=== PATIENT | female | born 1940 | race Caucasian/White ===

== ENCOUNTER 2016-04-20 17:28 | Inpatient (IN) | payer OTHER ==
[~2016-04-20] VITALS: Ht 162.6 cm; Wt 77.1 kg
--- NOTE | ~2016-04-20 | HC ---
[facility] [place] [address] CONSULTATION Name: CELINE WOODS Room #: 427-P ADM IN M.R.#: [id number] Admission: 04/20/16 Attend Phys: Newton Franklin DO Discharge: Date of : 42 Report #: [id number] THIS REPORT FOR: //name// CC: Anuj Franklin [facility] DATE OF SERVICE: 04/20/2016 HISTORY OF PRESENT ILLNESS: I have been asked to evaluate this 75-year-old lady who had laparoscopic cholecystectomy approximately 10 days ago at [facility] and did well in the immediate postoperative period. She continued to improve until approximately last , when she began to develop right upper quadrant pain. This was not associated with nausea or vomiting. She denies febrile illness. She sought attention at [facility] on the day of admission, but did not have satisfactory triage in the emergency department. She subsequently presented to the [facility] emergency department for evaluation and was found by CT scan to have a large subhepatic and perihepatic fluid collection with significant right upper quadrant pain. She has been admitted to the medicine service for evaluation, IV antibiotics and consideration of interventional radiology consultation for drainage of the perihepatic fluid collection to evaluate for possible abscess formation. PAST MEDICAL HISTORY: Consistent with hypothyroidism and recent laparoscopic cholecystectomy at [facility] on 04/09/2016. CURRENT MEDICATIONS: Levothyroxine 0.025 mg daily and Pepcid 20 mg at bedtime. ALLERGIES: MORPHINE. SOCIAL HISTORY: Occasional alcohol ingestion. Does not smoke cigarettes and does not use illicit drugs. REVIEW OF SYSTEMS: Her 10-point review of systems is essentially noncontributory and she denies fever or chills, but has significant right upper quadrant pain with some right pleuritic discomfort. PHYSICAL EXAMINATION: GENERAL: Demonstrates a patient who is alert, cooperative and resting comfortably in bed. IV is infusing. She is alert and cooperative. HEENT: Pupils equal, round and react to light. Extraocular movements within normal limits. NECK: Supple. No adenopathy. LUNGS: Clear with decreased breath sounds at the right base. CARDIOVASCULAR: Regular rate and rhythm. [facility] [address] [place] [address] CONSULTATION Name: CELINE WOODS Room #: 427-P ADM IN M.R.#: [id number] Admission: 04/20/16 Attend Phys: Newton Franklin DO Discharge: Date of : 42 Report #: [id number] ABDOMEN: Marked tenderness in the right upper quadrant. No palpable masses present. Left lower quadrant and left upper quadrant are unremarkable and nontender. No guarding or rebound. Suggestion of guarding in the right upper quadrant. Right lower quadrant is unremarkable. LABORATORY DATA: Review of laboratory demonstrates white blood cell count high normal at approximately 12,000. CT scan demonstrates the subhepatic and perihepatic fluid collection, consistent with possible hematoma or abscess. I would recommend IV fluids. Interventional radiology consultation for drainage procedure as well as a hepatobiliary scan. If the fluid collection drainage is consistent with possible abscess, then infectious disease will need to be consulted for further antibiotic therapy and management. Thank you for allowing us to participate in her care. <ELECTRONICALLY SIGNED> By: Miguel A Garcia MD, FACS 04/23/16 1629 [id number] Miguel A Garcia MD, FACS /nt
--- NOTE | ~2016-04-20 | HC ---
[facility] [place] [address] CONSULTATION Name: CELINE WOODS Room #: 427-P [facility] IN M.R.#: [id number] Admission: 04/20/16 Attend Phys: Newton Franklin DO Discharge: Date of : 42 Report #: [id number] THIS REPORT FOR: //name// CC: Anuj Franklin [facility] Infectious Disease Consultation REASON FOR CONSULTATION: I was asked to evaluate concerning suspected postoperative surgical site infection after laparoscopic cholecystectomy. HISTORY OF PRESENT ILLNESS: The patient is a 75-year-old who underwent a laparoscopic cholecystectomy on 04/09/2016 by ____ [facility]. No intraoperative complications were noted. She was dismissed and at home was doing reasonably well until 5 days ago had the acute onset of right upper quadrant pain. This persisted, associated with mild sweats, which she thought was low grade fever, although she never took it. Did have some pleuritic chest pain and pain up into her right shoulder, presented to the Emergency Room for further evaluation. CT scan showed fairly large subdiaphragmatic fluid collection with associated air. Also had some fluid in the right chest with atelectasis and infiltrate. Along with this, she developed shortness of breath. She would have spasms of pain, not relieved with ibuprofen. ALLERGIES: MORPHINE. MEDICATIONS: Levothyroxine and Pepcid, now on vancomycin and meropenem. PAST MEDICAL HISTORY: Cholecystectomy, hypothyroidism, abdominoplasty, liposuction. FAMILY HISTORY: Noncontributory. SOCIAL HISTORY: Nonsmoker, no significant alcohol intake. REVIEW OF SYSTEMS: No cough or sputum production. No vomiting or diarrhea. No dysuria or frequency. PHYSICAL EXAMINATION: VITAL SIGNS: Afebrile. GENERAL: Hemodynamically stable, alert, cooperative. Right upper quadrant has drainage in place with thin bloody fluid in the bulb. HEENT: Unremarkable. LUNGS: Crackles in both bases, right greater than left. HEART: Regular, without murmur. [facility] [address] [place] [address] CONSULTATION Name: CELINE WOODS Room #: [address] [place] [address] IN M.R.#: [id number] Admission: 04/20/16 Attend Phys: Newton Franklin DO Discharge: Date of : 42 Report #: [id number] ABDOMEN: Soft, tender in the right upper quadrant, incisions from laparoscopic cholecystectomy unremarkable. No CVA tenderness. EXTREMITIES: Unremarkable. LABORATORY STUDIES: Hepatobiliary scan negative for biliary leak. Blood culture is negative to date. Sodium 136, potassium 3.4, bicarbonate 24, creatinine 0.8, bilirubin 1.2, alk phos 105, ____. Hemoglobin 9.2, white count 9.9, platelet count 372,000. IMPRESSION: A 75-year-old, postoperative day #12 from laparoscopic cholecystectomy with subdiaphragmatic fluid collection consistent with hematoma. Still concerned about underlying infection with associated air in the region. We will need to await Gram stain and cultures to further define this process. PLAN: Recommend continuing broad antibiotic coverage pending culture results. Remove drain when fluid collection has resolved. We will follow. <ELECTRONICALLY SIGNED> By: Anuj Rollins MD 04/22/16 0936 [id number] [id number] Anuj Rollins MD /nt
--- NOTE | ~2016-04-20 | EKG ---
[address] [place] [address] ELECTROCARDIOGRAM REPORT Name: CELINE WOODS Room #: 427-P ADM IN M.R.#: [id number] Admission: 04/20/16 Attend Phys: Suni Saenz MD Discharge: Date of : 42 Report #: [id number] THIS REPORT FOR: //name// [facility] ED Test Date: 2016-04-20 Test Time: 18:46:32 Pat Name: CELINE WOODS Department: Room: 427 Gender: F Cigar Wrapper: Ara NUNEZ : 1940 Requested By: Alexandre Fried Order Number: [id number] MD: Alexander Jenkins Measurements Intervals [place] Rate: 88 P: 18 NM: 165 QRS: -20 QRSD: 94 T: -7 QT: 389 QTc: 471 Interpretive Statements Sinus rhythm Borderline left axis deviation Nonspecific T wave abnormality No previous ECG available for comparison Electronically Signed On 04-21-2016 7:44:12 [employer] by Alexander Jenkins [email or web address] <ELECTRONICALLY SIGNED> By: Alexander Jenkins MD, MERGED WITH [facility] 04/21/16 0744 1846 1846 Alexander Jenkins MD, FACC /EPI
[2016-04-20 17:31] VITALS: BP 120/63
[2016-04-20] MEDS ORDERED: LEVOTHYROXIN0.025 MG PO (17:35)
[2016-04-20] MEDS ORDERED: PEPCID20 MG PO (18:08)
[2016-04-20 18:22] LABS: HEMOGLOBIN 9.8 gm/dL (12.0-15.0); MCH 29.5 pg (26.0-34.0); MCHC 33.7 % (28.0-37.0); MCV 87.5 fL (80.0-100.0); PLATELET COUNT 431 thou/uL (150-400); RBC 3.32 mil/uL (4.20-5.00); RDW 14.3 % (10.5-14.5); WBC 11.4 thou/uL (4.0-11.0)
[2016-04-20 18:33] LABS: MANUAL DIFF YES
[2016-04-20 18:50] LABS: ABSOLUTE NEUTROPHILS 9.9 thou/uL (1.4-8.2); TOTAL CELL COUNT 100
[2016-04-20 18:52] LABS: ALBUMIN 2.5 g/dL (3.4-5.0); CALCIUM 8.8 mg/dL (8.5-10.1); CREATININE 0.8 mg/dL (0.6-1.3); DIRECT BILIRUBIN 0.3 mg/dL (<0.1-0.3); TOTAL BILIRUBIN 1.2 mg/dL (<0.1-1.0); TOTAL PROTEIN 7.2 g/dL (6.4-8.2)
[2016-04-20 18:54] LABS: POTASSIUM 2.8 mmol/L (3.5-5.1)
[2016-04-20 21:37] VITALS: BP 140/74
[2016-04-20 21:50] VITALS: BP 108/61
[2016-04-21 04:30] VITALS: BP 115/51
[2016-04-21 06:30] LABS: HEMATOCRIT 26.2 % (37.0-47.0); HEMOGLOBIN 9.2 gm/dL (12.0-15.0); MCH 30.7 pg (26.0-34.0); MCHC 35.1 % (28.0-37.0); MCV 87.4 fL (80.0-100.0); RDW 14.5 % (10.5-14.5); WBC 9.9 thou/uL (4.0-11.0)
[2016-04-21 07:03] LABS: ALBUMIN 2.3 g/dL (3.4-5.0); CREATININE 0.8 mg/dL (0.6-1.3); POTASSIUM 3.4 mmol/L (3.5-5.1); TOTAL BILIRUBIN 1.2 mg/dL (<0.1-1.0); TOTAL PROTEIN 5.6 g/dL (6.4-8.2)
[2016-04-21 07:36] VITALS: BP 124/61
[2016-04-21 10:52] VITALS: BP 124/61
[2016-04-21 17:30] VITALS: BP 101/60
[2016-04-21 17:34] VITALS: BP 114/57
[2016-04-21 20:00] VITALS: BP 123/54
[2016-04-22 04:30] VITALS: BP 116/56
[2016-04-22 06:05] LABS: HEMATOCRIT 26.6 % (37.0-47.0); HEMOGLOBIN 8.8 gm/dL (12.0-15.0); MCH 29.5 pg (26.0-34.0); MCHC 33.1 % (28.0-37.0); MCV 89.2 fL (80.0-100.0); PLATELET COUNT 420 thou/uL (150-400); RBC 2.98 mil/uL (4.20-5.00); RDW 14.8 % (10.5-14.5); WBC 8.4 thou/uL (4.0-11.0)
[2016-04-22 06:18] LABS: MANUAL DIFF YES
[2016-04-22 06:26] LABS: CALCIUM 7.9 mg/dL (8.5-10.1); CREATININE 0.7 mg/dL (0.6-1.3); POTASSIUM 3.4 mmol/L (3.5-5.1)
[2016-04-22 07:59] LABS: ABSOLUTE NEUTROPHILS 6.8 thou/uL (1.4-8.2); PLATELET ESTIMATE INCREASED; TOTAL CELL COUNT 100
[2016-04-22 08:04] VITALS: BP 119/59
[2016-04-22 16:17] VITALS: BP 118/50
[2016-04-22 19:54] VITALS: BP 121/65
[2016-04-23 03:41] VITALS: BP 127/72
[2016-04-23 04:40] LABS: HEMATOCRIT 26.5 % (37.0-47.0); HEMOGLOBIN 8.9 gm/dL (12.0-15.0); MCH 29.8 pg (26.0-34.0); MCHC 33.6 % (28.0-37.0); MCV 88.8 fL (80.0-100.0); PLATELET COUNT 452 thou/uL (150-400); RBC 2.99 mil/uL (4.20-5.00); WBC 7.2 thou/uL (4.0-11.0)
[2016-04-23 04:53] LABS: MANUAL DIFF YES
[2016-04-23 05:00] LABS: CALCIUM 7.8 mg/dL (8.5-10.1); CREATININE 0.6 mg/dL (0.6-1.3)
[2016-04-23 08:41] LABS: TOTAL CELL COUNT 100
[2016-04-23 08:46] LABS: ANISOCYTOSIS 1+
[2016-04-23 08:50] VITALS: BP 133/67
[2016-04-23 16:28] VITALS: BP 131/73
[2016-04-23 21:30] VITALS: BP 121/71
[2016-04-24 04:00] VITALS: BP 142/66
[2016-04-24 07:41] VITALS: BP 142/82
[2016-04-24 17:24] VITALS: BP 142/73
[2016-04-24 20:00] VITALS: BP 129/70
[2016-04-25 04:30] VITALS: BP 136/87
[2016-04-25 08:22] VITALS: BP 128/73
[2016-04-25 12:23] LABS: HEMATOCRIT 26.8 % (37.0-47.0); MCH 29.1 pg (26.0-34.0); MCHC 33.5 % (28.0-37.0); MCV 86.7 fL (80.0-100.0); RBC 3.09 mil/uL (4.20-5.00); RDW 15.2 % (10.5-14.5); WBC 7.1 thou/uL (4.0-11.0)
[2016-04-25 12:33] LABS: CALCIUM 7.9 mg/dL (8.5-10.1); CREATININE 0.7 mg/dL (0.6-1.3); POTASSIUM 3.1 mmol/L (3.5-5.1)
[2016-04-25 12:38] LABS: INR 1.2; PROTIME 12.2 Seconds (9.3-11.4)
[2016-04-25 16:25] VITALS: BP 119/65
[2016-04-25 20:00] VITALS: BP 111/75
[2016-04-26 04:00] VITALS: BP 139/68
[2016-04-26 07:00] LABS: HEMOGLOBIN 8.9 gm/dL (12.0-15.0); MCH 29.3 pg (26.0-34.0); RBC 3.03 mil/uL (4.20-5.00); RDW 15.2 % (10.5-14.5); WBC 7.2 thou/uL (4.0-11.0)
[2016-04-26 07:14] LABS: CALCIUM 8.3 mg/dL (8.5-10.1); CREATININE 0.7 mg/dL (0.6-1.3)
[2016-04-26 07:19] LABS: POTASSIUM 2.9 mmol/L (3.5-5.1)
[2016-04-26 07:52] VITALS: BP 116/66
[2016-04-26] MEDS ORDERED: AUGMENTIN 875875 MG PO (10:51)
[2016-04-26 13:21] VITALS: BP 116/66
== END 2016-04-26 18:59 | disposition home or self-care (01) | DRG 862 ==
LOC: ER 17:28 → EROBS 20:53 → 4E 20:53
PROVIDERS: Family Medicine; Nurse Practitioner; Surgery
PROC: 0W9G30Z Drainage of Peritoneal Cavity with Drainage Device, Percutaneous Approach (ICD-10-PCS; principal; 2016-04-21)
DX: T81.4XXA Infection following a procedure, initial encounter (principal); K65.1 Peritoneal abscess; J18.9 Pneumonia, unspecified organism; K91.870 Postprocedural hematoma of a digestive system organ or structure following a digestive system procedure; J90 Pleural effusion, not elsewhere classified; E03.9 Hypothyroidism, unspecified; I80.9 Phlebitis and thrombophlebitis of unspecified site; Z90.49 Acquired absence of other specified parts of digestive tract; Z88.6 Allergy status to analgesic agent
CPT/HCPCS: 10183; 27001

== ENCOUNTER → 2016-08-04 | Outpatient (CLI) | payer OTHER ==
[~2016-08-04] MED LIST: AUGMENTIN 875875 MG PO; LEVOTHYROXIN0.025 MG PO; PEPCID20 MG PO
[2016-08-04 09:07] LABS: CREATININE 0.9 mg/dL (0.6-1.0)
== END ==
LOC: CAT 08:12
PROVIDERS: Specialist
DX: K65.1 Peritoneal abscess (principal)